=== PATIENT | female | born 1965 | race Caucasian/White ===

== ENCOUNTER 2017-01-29 15:47 | Day surgery (SDC) | payer OTHER ==
[2017-01-29] MEDS ORDERED: NALOXONE HCL INJ/PF 0.4 MG/1 ML SDV ONE ×2 (16:15→16:16)
[2017-01-29] MEDS ORDERED: FLUMAZENIL INJ 0.5 MG/5 ML VIAL ONE (16:17)
[2017-01-29] MEDS ORDERED: EPINEPHRINE INJ 1 MG/10 ML DISP.SYRIN ONE (16:18)
[2017-01-29] MEDS ORDERED: GLUCAGON,HUMAN RECOMB 1 MG INJ ONE (16:18)
[2017-01-29] MEDS: MIDAZOLAM 2 MG/2 ML INJ ONE ×3 (17:09→17:18)
[2017-01-29] MEDS: FENTANYL CITRATE INJ/PF 100 MCG/2 ML AMPUL ONE ×2 (17:11→17:15)
--- NOTE | 2017-01-29 17:37 | Operative Report ---
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 Gastric antral ulcers 2.~1cm Chatterjee's esophagus Surgery: Esophagogastroduodenoscopy with biopsy and radiofrequency ablation Medications: Versed 3mg Fentanyl 100mcg IV push Tissue removed: Antral biopsy for pathology Procedure: After informed consent obtained from patient, the throat was sprayed with Hurricane and conscious sedation was achieved. The upper endoscope was inserted into the esophagus under direct vision and advanced into the stomach. The duodenum was entered and examined to the second part. Endoscope was then slowly pulled out of the patient as the mucosa was examined into details. Patient tolerated procedure well. Findings Esophagus: A narrow 1cm tongue of columnar epithelium was noted in the esophagus and this was ablated using the [id number] ablation catheter Antrum: Two 6 mm ulcers were noted in the gastric antrum with no evidence for recent bleeding. Body: Normal Fundus: Normal Duodenum first part: Normal Duodenum second part: Normal Plan: Await pathology. Increased pantoprazole to twice daily and repeat EGD with ablation in 2 months OPERATION: .
[2017-01-29 18:17] VITALS: BP 103/54
== END 2017-01-29 18:35 | disposition home or self-care (01) ==
LOC: END 15:47
PROVIDERS: ATTEND Internal Medicine Gastroenterology
PROC: 0D558ZZ Destruction of Esophagus, Via Natural or Artificial Opening Endoscopic (ICD-10-PCS; 2017-01-29)
PROC: 0DB68ZX Excision of Stomach, Via Natural or Artificial Opening Endoscopic, Diagnostic (ICD-10-PCS; principal; 2017-01-29 16:15)
DX: K22.719 Barrett's esophagus with dysplasia, unspecified (principal); K25.9 Gastric ulcer, unspecified as acute or chronic, without hemorrhage or perforation; K21.9 Gastro-esophageal reflux disease without esophagitis; Z88.2 Allergy status to sulfonamides
CPT/HCPCS: 43270; 88342 ×2; 88305 ×2; J2250; J3010; J0171; J1610; J2310; J3490

== ENCOUNTER 2017-03-26 15:22 | Day surgery (SDC) | payer OTHER ==
[~2017-03-26 15:22] MED LIST: EPINEPHRINE INJ 1 MG/10 ML DISP.SYRIN ONE; FENTANYL CITRATE INJ/PF 100 MCG/2 ML AMPUL ONE; FLUMAZENIL INJ 0.5 MG/5 ML VIAL ONE; GLUCAGON,HUMAN RECOMB 1 MG INJ ONE; MIDAZOLAM 2 MG/2 ML INJ ONE; NALOXONE HCL INJ/PF 0.4 MG/1 ML SDV ONE
[2017-03-26] MEDS: MIDAZOLAM 2 MG/2 ML INJ ONE ×2 (16:37→16:40)
--- NOTE | 2017-03-26 16:59 | Operative Report ---
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 The upper endoscope was inserted into the esophagus under direct vision and advanced into the stomach. The duodenum was entered and examined to the second part. Endoscope was then slowly pulled out of the patient as the mucosa was examined into details. Patient tolerated procedure well. Findings Esophagus: Normal with no evidence of columnar epithelium. Biopsy was taken from the Z line Antrum: Normal Body: Normal Fundus: Normal Duodenum first part: Normal Duodenum second part: Normal Plan: Await pathology. She has been having more reflux symptoms on pantoprazole which did not appear to work as well as omeprazole in the past. She did have ulcers while she was on omeprazole. I gave her a prescription for lansoprazole OPERATION: .
[2017-03-26 17:54] VITALS: BP 103/53
== END 2017-03-26 17:55 | disposition home or self-care (01) ==
LOC: END 15:22
PROVIDERS: ATTEND Internal Medicine Gastroenterology
PROC: 0DB58ZX Excision of Esophagus, Via Natural or Artificial Opening Endoscopic, Diagnostic (ICD-10-PCS; principal; 2017-03-26 16:00)
DX: K21.9 Gastro-esophageal reflux disease without esophagitis (principal); Z88.2 Allergy status to sulfonamides; Z79.899 Other long term (current) drug therapy
CPT/HCPCS: 43239; 88305 ×2; J2250; J3010; J0171; J1610; J2310; J3490